=== PATIENT | male | born 1940 ===

== ENCOUNTER 2020-05-13 17:07 | Emergency (ER) | payer OTHER ==
[~2020-05-13] VITALS: Ht 177.8 cm; Wt 92.1 kg
== END 2020-05-13 19:44 | disposition home or self-care (01) ==
LOC: ER 17:07
DX: K42.9 Umbilical hernia without obstruction or gangrene (principal); R10.31 Right lower quadrant pain

== ENCOUNTER 2023-04-16 15:17 | Emergency (ER) | payer OTHER ==
[~2023-04-16] VITALS: Ht 177.8 cm; Wt 93.0 kg
[2023-04-16] MEDS ORDERED: AMLODIPINE BESYL5 MG PO (18:15)
[2023-04-16] MEDS ORDERED: LOSARTAN-HCTZ1 EAC1 PO (18:15)
[2023-04-16] MEDS ORDERED: MEMANTINE HCL10 MG PO (18:16)
[2023-04-16] MEDS ORDERED: GABAPENTIN600 MG PO (18:16)
[2023-04-16] MEDS ORDERED: TRADJENTA5 MG PO (18:16)
[2023-04-16] MEDS ORDERED: REMINYL8 MG PO (18:16)
[2023-04-16] MEDS ORDERED: ATORVASTATIN CA10 MG PO (18:17)
[2023-04-16] MEDS ORDERED: HUMALOG MI100 UNIT/1 SQ (18:17)
[2023-04-16] MEDS ORDERED: LEVOTHYROXINE50 MCG PO (18:17)
[2023-04-16 21:28] LABS: HEMATOCRIT 41.1 % (39.0-48.0); HEMOGLOBIN 14.2 g/dL (13-16.00); MEAN CELL VOLUME 91.4 fL (80.0-100.00); MEAN CORPUSCULAR HEMOGLOBIN 31.6 pg (27.00-32.0); MEAN CORPUSCULAR HGB CONC 34.6 g/dl (32.0-36.0); PLATELET COUNT 146 K/uL (150-450)
[2023-04-16 21:46] LABS: ALBUMIN 3.7 gm/dL (3.4-5.0); BILIRUBIN TOTAL 0.66 mg/dL (0.3-1.2); CALCIUM 8.7 mg/dL (8.5-10.1); CREATININE SERUM 1.17 mg/dL (0.70-1.30); GFR 59.25; POTASSIUM 3.59 mEq/L (3.5-5.1); TOTAL PROTEIN 7.7 gm/dL (6.4-8.2)
== END 2023-04-16 23:24 | disposition home or self-care (01) ==
LOC: ER 15:17
PROVIDERS: General Practice
DX: M62.81 Muscle weakness (generalized) (principal); R29.898 Other symptoms and signs involving the musculoskeletal system